=== PATIENT | female | born 1950 | race Hispanic/Latino ===

== ENCOUNTER → 2018-08-24 | Outpatient (CLI) | payer MEDICARE | END | disposition home or self-care (01) | LOC: SHCH 13:32 | PROVIDERS: ATTEND Internal Medicine Cardiovascular Disease | DX: R60.9 Edema, unspecified (principal) | CPT/HCPCS: 93306 ==

== ENCOUNTER → 2018-09-08 | Outpatient (CLI) | payer MEDICARE ==
[~2018-09-08] VITALS: Ht 157.5 cm; Wt 86.2 kg
== END | disposition home or self-care (01) ==
LOC: SHCH 07:58
PROVIDERS: ATTEND Internal Medicine Cardiovascular Disease
DX: I50.22 Chronic systolic (congestive) heart failure (principal)
CPT/HCPCS: 78481; A9512

== ENCOUNTER 2018-10-20 06:02 | Day surgery (SDC) | payer MEDICARE ==
[2018-10-16 11:40] LABS: EOSINOPHILS % (AUTO) 4.1 % (0.0-8.0); HEMATOCRIT 40.7 % (36-48); LYMPHOCYTES % (AUTO) 30.9 % (21.0-51.0); MEAN CORPUSCULAR HEMOGLOBIN 35.8 pg (27.0-33.0); MEAN CORPUSCULAR HGB CONC 34.8 g/dL (32.0-36.0); MEAN CORPUSCULAR VOLUME 102.8 fL (79-99); MONOCYTES % (AUTO) 11.7 % (3.0-13.0); NEUTROPHILS % (AUTO) 52.3 % (40.0-77.0); NUCLEATED RED BLOOD CELLS 0.1 % (0.0-0.19); PLATELET COUNT (AUTO) 104 K/uL (130-400); RED BLOOD CELL COUNT(AUTO) 3.96 MIL/uL (4.00-5.50); RED CELL DISTRIBUTION WIDTH 12.8 % (11.0-15.5); WHITE BLOOD COUNT (AUTO) 6.5 K/uL (4.8-10.8)
[2018-10-16 11:54] LABS: CREATININE 0.9 mg/dL (0.5-1.5); POTASSIUM 4.1 mmol/L (3.5-5.1)
[2018-10-16 11:55] LABS: INR 1.16 (0.85-1.15); PARTIAL THROMBOPLASTIN TIME 30.6 SEC (26.3-35.5); PROTHROMBIN TIME 12.1 SEC (9.6-11.6)
[2018-10-16 11:59] VITALS: BP 103/61
[2018-10-16 12:47] LABS: APPEARANCE,URINE Turbid (CLEAR); BILIRUBIN,URINE Negative (NEGATIVE); COLOR,URINE Dark Yellow (YELLOW); GLUCOSE, URINE (UA) Negative (NEGATIVE); KETONES,URINE Negative (NEGATIVE); LEUKOCYTE ESTERASE ,URINE Trace (NEGATIVE); NITRATE,URINE Negative (NEGATIVE); OCCULT BLOOD,URINE Nonhemolyzed Trace (NEGATIVE); PH,URINE 8.5 (5.0-8.0); PROTEIN,URINE Negative (NEGATIVE)
[2018-10-16 13:26] LABS: AMORPHOUS SEDIMENT,UR Many /LPF (None Seen); BACTERIA,URINE Few /HPF (None Seen); RBC,URINE 0-1 /HPF (0-1); SQUAMOUS EPITHELIAL CELL,UR Few /HPF (0-2); WBC,URINE 0-1 /HPF (0-1)
--- NOTE | 2018-10-19 09:45 | NUR ---
REPORTED ABNORMAL UA,PT,INR,BMP, CBC TO GEOFF DOE OF DR. ONEAL NO NEW ORDERS , OK TO PROCEED
[~2018-10-20] VITALS: Ht 154.9 cm; Wt 63.5 kg
[2018-10-20] VITALS (13 sets, daily range): BP systolic 102–118; BP diastolic 61–74
[~2018-10-20 06:02] MED LIST: ASPI-555 PO; CITA10TA7 PO; DIGO250T84 PO; FEXO1TAB8 PO; FURO40TA5 PO; MONT10TA24 PO; PANT40TA25 PO; RAMI2.5C16 PO; THEOPHYLLINE PO; UMEC1DIS IH
[2018-10-20] MEDS ORDERED: SODIUM CHLORIDE 0.9% 1000ML 1,000 ML IV ONE (06:33)
[2018-10-20] MEDS ORDERED: IOHEXOL-350 50ML VIAL IV ONE (08:03)
[2018-10-20] MEDS ORDERED: IOHEXOL 350 MG/ML 100ML INFUS..BTL IV ONE (08:03)
[2018-10-20] MEDS ORDERED: BIVALIRUDIN 250 MG/VIAL IV ONE (08:03)
[2018-10-20] MEDS ORDERED: NITROGLYCERIN 5 MG/ML 10 ML VIAL IV ONE (08:03)
[2018-10-20] MEDS ORDERED: LIDOCAINE HCL 2% 20ML ONE (08:03)
[2018-10-20] MEDS ORDERED: SODIUM CHLORIDE 0.9% 1000ML 1,000 ML IV SCH (09:43)
[2018-10-20] MEDS ORDERED: FUROSEMIDE 10 MG/ML 2ML VIAL IV SCH (09:45)
--- NOTE | 2018-10-20 10:00 | NUR ---
PATIENT EDUCATION GIVEN REGARDING BLEEDING PREVENTION, TO REMAIN IN BED IN SUPINE POSITION, TO MAINTAIN RIGHT LEG EXTENDED, NOT TO ATTEMPT TO GET OUT OF BED FOR ANY REASON, PATIENT AND DAUGHTER VERBALIZED UNDERSTANDING AND AGREED TO COMPLY WITH INSTRUCTIONS. CALL ANGUI[facility]O WITHIN REACH.
== END 2018-10-20 15:13 | disposition home or self-care (01) ==
LOC: DAH 06:02
PROVIDERS: ATTEND Internal Medicine Cardiovascular Disease
DX: I34.0 Nonrheumatic mitral (valve) insufficiency (principal); I11.0 Hypertensive heart disease with heart failure; I50.22 Chronic systolic (congestive) heart failure; E11.9 Type 2 diabetes mellitus without complications; Z79.1 Long term (current) use of non-steroidal anti-inflammatories (NSAID); Z79.899 Other long term (current) drug therapy; Z85.3 Personal history of malignant neoplasm of breast; Z90.710 Acquired absence of both cervix and uterus; Z98.890 Other specified postprocedural states; Z82.49 Family history of ischemic heart disease and other diseases of the circulatory system; J84.10 Pulmonary fibrosis, unspecified
CPT/HCPCS: 36415; 71045; 80048; 81001; 85025; 85610; 85730; 93005; 93460; A4606; C1760; C1894 ×3; J1644; J1940; J3490 ×2; J7030; Q9965; Q9967 ×2; J0583

== ENCOUNTER → 2019-10-11 | Outpatient (CLI) | payer MEDICARE ==
[~2019-10-11] MED LIST changes: -ASPI-555 PO; +ASPI-556 PO; +DIGO250T73 PO; -DIGO250T84 PO; -FURO40TA5 PO; -MONT10TA24 PO; +MONT10TA26 PO
== END | disposition home or self-care (01) ==
LOC: SHCH 16:04
PROVIDERS: ATTEND Internal Medicine Cardiovascular Disease
DX: I27.20 Pulmonary hypertension, unspecified (principal)
CPT/HCPCS: 93306

== ENCOUNTER → 2021-03-14 | Outpatient (CLI) | payer MEDICARE ==
[~2021-03-14] MED LIST changes: -CITA10TA7 PO; +CITA10TA89 PO; +MONT-39 PO; -MONT10TA26 PO; -PANT40TA25 PO; +PANT40TA54 PO; -RAMI2.5C16 PO; +RAMI2.5C55 PO
== END | disposition home or self-care (01) ==
LOC: SHCH 15:32
PROVIDERS: ATTEND Internal Medicine Cardiovascular Disease
DX: I11.0 Hypertensive heart disease with heart failure (principal); I50.32 Chronic diastolic (congestive) heart failure; I34.0 Nonrheumatic mitral (valve) insufficiency; I35.8 Other nonrheumatic aortic valve disorders; E11.9 Type 2 diabetes mellitus without complications
CPT/HCPCS: 93306

== ENCOUNTER 2021-04-05 07:00 | Day surgery (SDC) | payer MEDICARE ==
[2021-04-03 14:51] LABS: BASOPHILS % (AUTO) 0.9 % (0.0-5.0); EOSINOPHILS % (AUTO) 1.2 % (0.0-8.0); HEMATOCRIT 46.8 % (36-48); LYMPHOCYTES % (AUTO) 16.9 % (21.0-51.0); MEAN CORPUSCULAR HEMOGLOBIN 34.6 pg (27.0-33.0); MEAN CORPUSCULAR HGB CONC 34.4 g/dL (32.0-36.0); MEAN CORPUSCULAR VOLUME 100.6 fL (79-99); MONOCYTES % (AUTO) 10.3 % (3.0-13.0); NEUTROPHILS % (AUTO) 69.7 % (40.0-77.0); PLATELET COUNT (AUTO) 166 K/uL (130-400); RED BLOOD CELL COUNT(AUTO) 4.65 MIL/uL (4.00-5.50); RED CELL DISTRIBUTION WIDTH 12.7 % (11.0-15.5); WHITE BLOOD COUNT (AUTO) 13.7 K/uL (4.8-10.8)
[2021-04-03 14:53] LABS: APPEARANCE,URINE Clear (CLEAR); BILIRUBIN,URINE Negative (NEGATIVE); COLOR,URINE Yellow (YELLOW); GLUCOSE, URINE (UA) Negative (NEGATIVE); KETONES,URINE Trace mg/dL (NEGATIVE); LEUKOCYTE ESTERASE ,URINE Moderate (NEGATIVE); NITRATE,URINE Negative (NEGATIVE); OCCULT BLOOD,URINE Negative (NEGATIVE); PROTEIN,URINE Negative (NEGATIVE)
[2021-04-03 14:58] LABS: CREATININE 1.6 mg/dL (0.5-1.5); POTASSIUM 4.6 mmol/L (3.5-5.1)
[2021-04-03 15:00] LABS: RBC,URINE 0-1 /HPF (0-1)
[2021-04-03 15:01] LABS: BACTERIA,URINE Few /HPF (None Seen); MUCUS,URINE Rare LPF (None Seen); SQUAMOUS EPITHELIAL CELL,UR Moderate /HPF (0-2)
[2021-04-03 15:02] LABS: INR 1.06 (0.85-1.15); PROTHROMBIN TIME 11.5 SEC (9.6-11.6)
[2021-04-03 15:03] LABS: PARTIAL THROMBOPLASTIN TIME 25.4 SEC (26.3-35.5)
[2021-04-04 11:15] VITALS: BP 121/52
[~2021-04-05] VITALS: Ht 152.4 cm; Wt 63.5 kg
[2021-04-05] VITALS (10 sets, daily range): BP systolic 93–120; BP diastolic 53–76
[~2021-04-05 07:00] MED LIST changes: +0.9% NACL 500ML IV.SOLN 500 ML IV SCH; -CITA10TA89 PO; -DIGO250T73 PO; +ESCI-8 PO; +FEXO180T94 PO; -FEXO1TAB8 PO; +FLUT1AER IH; +LEVO75CA5 PO; +OMEP40CA21 PO; -PANT40TA54 PO; +POTA-79 PO; -RAMI2.5C55 PO; +SPIR25TA PO; +THEO100C PO; -THEOPHYLLINE PO; +TORS20TA4 PO; -UMEC1DIS IH; +VIT1CAPS28 PO
[2021-04-05] MEDS ORDERED: 0.9%NACL 1000ML 1,000 ML IV ONE (07:40)
[2021-04-05] MEDS ORDERED: SODIUM BICARB 50MEQ 50ML VIAL 50 ML ONE (09:18)
[2021-04-05] MEDS ORDERED: NITROGLYCERIN 2 MG VIAL IV ONE (09:18)
[2021-04-05] MEDS ORDERED: HEPARIN 10,000 UNIT/10ML (1,000 UNIT/ML) VIAL ONE (09:18)
[2021-04-05] MEDS ORDERED: LIDOCAINE HCL 400MG/20ML VIAL ONE ×2 (09:18→10:25)
[2021-04-05] MEDS ORDERED: IOHEXOL-350 50ML VIAL IV ONE (09:18)
[2021-04-05] MEDS ORDERED: BIVALIRUDIN 250 MG/VIAL IV ONE (09:18)
[2021-04-05] MEDS ORDERED: IOHEXOL 350 MG/ML 100ML INFUS..BTL IV ONE ×2 (09:18→09:50)
[2021-04-05] MEDS ORDERED: MIDAZOLAM HCL 1 MG/ML 2ML VIAL ONE (09:51)
[2021-04-05] MEDS ORDERED: FENTANYL CITRATE PF 50 MCG/1 ML 2ML VIAL ONE (09:51)
== END 2021-04-05 15:10 | disposition home or self-care (01) ==
LOC: DAH 07:00
PROVIDERS: ATTEND Internal Medicine Cardiovascular Disease
DX: I27.20 Pulmonary hypertension, unspecified (principal); I25.10 Atherosclerotic heart disease of native coronary artery without angina pectoris; I11.0 Hypertensive heart disease with heart failure; I50.43 Acute on chronic combined systolic (congestive) and diastolic (congestive) heart failure; E11.9 Type 2 diabetes mellitus without complications; G47.33 Obstructive sleep apnea (adult) (pediatric); Z85.3 Personal history of malignant neoplasm of breast; Z92.3 Personal history of irradiation; Z90.710 Acquired absence of both cervix and uterus; Z98.890 Other specified postprocedural states; Z79.01 Long term (current) use of anticoagulants; Z79.899 Other long term (current) drug therapy; Z79.82 Long term (current) use of aspirin
CPT/HCPCS: 36415; 71045; 80048; 81001; 85025; 85610; 85730; 87088; 93005; 93453; A4215; A4216; A4221; A4222; A4223 ×3; A4606; A4663; C1760; C1894 ×3; J1644; J3490 ×4; J7030; Q9965 ×2; Q9967; J0583; J2250; J3010